=== PATIENT | male | born 1955 | race Caucasian/White ===

== ENCOUNTER 2021-04-29 22:20 | Emergency (ER) | payer OTHER ==
[2021-04-30 01:29] LABS: HEMOGLOBIN 16.6 gm/dl (14.0-17.5); RED BLOOD COUNT 4.85 M/UL (4.20-5.50)
[2021-04-30 01:43] LABS: BUN/CREATININE RATIO 16 (0-10)
== END 2021-04-30 06:50 | disposition home or self-care (01) ==
LOC: ER1 22:20
PROVIDERS: Physician Assistant
DX: R04.0 Epistaxis (principal); I10 Essential (primary) hypertension; Z79.82 Long term (current) use of aspirin; Z79.899 Other long term (current) drug therapy
CPT/HCPCS: 30903; 80048; 85025; 99283